=== PATIENT | male | born 1955 | race Caucasian/White ===

== ENCOUNTER 2019-06-01 18:33 | Inpatient (IN) | payer MEDICARE, OTHER ==
[~2019-06-01] VITALS: Ht 190.5 cm; Wt 100.7 kg
[~2019-06-01 18:33] MED LIST: DOXYCYCLINE HY100 M2 ORAL; FLAGYL250 MG ORAL; PEPTO-BISM262 MG/15 ORAL; PROTONIX40 MG ORAL
--- NOTE | 2019-06-01 18:48 | Emergency Room Report ---
History of Present Illness General Chief Complaint: Seizure Source: Patient Present Illness HPI Patient is a 63-year-old male brought in by basic ambulance after a seizure at his facility. Patient had seizure lasting approximately 2 to 3 minutes.Patient not been having any recent fever or illness. No prior history of seizures. Patient denies any current complaints. Denies any extremity pain. Allergies: Coded Allergies: PENICILLINS (Verified Allergy, Unknown, 05/03/18) Patient History Past Medical History: see triage record Reviewed Nursing Documentation: PMH: Agreed; PSxH: Agreed Nursing Documentation-PMH Past Medical History: No History, Except For Hx Cardiac Problems: Yes - PKD Hx Hypertension: Yes Hx Cancer: No Hx Gastrointestinal Problems: No Hx Neurological Problems: Yes Hx Parkinson's Disease: Yes Review of Systems All Other Systems: negative except mentioned in HPI Physical Exam Vital Signs Date Time Temp Pulse Resp B/P (MAP) Pulse Ox O2 Delivery O2 Flow Rate FiO2 06/01/19 18:40 98.4 83 18 129/74 (92) 99 Room Air Sp02 EP Interpretation: reviewed, normal General Appearance: normal inspection, well appearing, no apparent distress, alert, GCS 15 Head: atraumatic ENT: normal ENT inspection, hearing grossly normal, normal voice Neck: normal inspection, full range of motion, supple, no bony tend Respiratory: normal inspection, lungs clear, normal breath sounds, no respiratory distress, no retraction, no wheezing Cardiovascular #1: regular rate, rhythm, no edema Gastrointestinal: normal inspection, normal bowel sounds, non tender, soft, no guarding, no hernia Genitourinary: no CVA tenderness Musculoskeletal: normal inspection, back normal, normal range of motion Neurologic: alert, motor strength/tone normal, fur sewer III-XII nml as tested, oriented x3, responsive, speech normal, normal inspection Psychiatric: normal inspection, judgement/insight normal, mood/affect normal Skin: no rash Medical Decision Making Diagnostic Impression: Primary Impression: Epileptic seizure, generalized ER Course Patient presented for seizure. Differential diagnosis include was not limited to medication withdrawal, hyponatremia, CVA, alcohol withdrawal, substance abuse among others. Because of complexity of patient's case laboratory tests and imaging studies were ordered.Laboratory testing was unremarkable. CT of the head read by radiologist no evidence of acute CVA or intracranial hemorrhage. Dr. Bob Estrada was contacted for inpatient management Labs Test 06/01/19 19:55 06/01/19 20:34 Sodium Level 140 MMOL/L (136-145) Potassium Level 4.5 MMOL/L (3.5-5.1) Chloride Level 103 MMOL/L (98-107) Carbon Dioxide Level 30 MMOL/L (21-32) Anion Gap 7 mmol/L (5-15) Blood Urea Nitrogen 19 mg/dL (7-18) Creatinine 0.9 MG/DL (0.55-1.30) Estimat Glomerular Filtration Rate > 60 mL/min (>60) Glucose Level 95 MG/DL (74-106) Calcium Level 10.0 MG/DL (8.5-10.1) Total Bilirubin 0.4 MG/DL (0.2-1.0) Aspartate Amino Transf (AST/SGOT) 29 U/L (15-37) Alanine Aminotransferase (ALT/SGPT) 30 U/L (12-78) Alkaline Phosphatase 111 U/L (46-116) Troponin I 0.018 ng/mL (0.000-0.056) Total Protein 7.9 G/DL (6.4-8.2) Albumin 4.2 G/DL (3.4-5.0) Globulin 3.7 g/dL Albumin/Globulin Ratio 1.1 (1.0-2.7) Valproic Acid (Depakene) Level < 3 MCG/ML (50-100) White Blood Count 9.8 K/UL (4.8-10.8) Red Blood Count 4.11 M/UL (4.70-6.10) Hemoglobin 13.2 G/DL (14.2-18.0) Hematocrit 37.3 % (42.0-52.0) Mean Corpuscular Volume 91 FL (80-99) Mean Corpuscular Hemoglobin 32.2 PG (27.0-31.0) Mean Corpuscular Hemoglobin Concent 35.5 G/DL (32.0-36.0) Red Cell Distribution Width 11.7 % (11.6-14.8) Platelet Count 196 K/UL (150-450) Mean Platelet Volume 5.2 FL (6.5-10.1) Neutrophils (%) (Auto) 61.6 % (45.0-75.0) Lymphocytes (%) (Auto) 30.4 % (20.0-45.0) Monocytes (%) (Auto) 6.2 % (1.0-10.0) Eosinophils (%) (Auto) 1.2 % (0.0-3.0) Basophils (%) (Auto) 0.6 % (0.0-2.0) Last Vital Signs Date Time Temp Pulse Resp B/P (MAP) Pulse Ox O2 Delivery O2 Flow Rate FiO2 06/01/19 18:40 98.4 83 18 129/74 (92) 99 Room Air Status: improved Disposition: ADMITTED INPATIENT Condition: Stable Jordy Drake MD Jun 01, 2019 18:48
[2019-06-01 19:10] VITALS: BP 129/74
--- NOTE | 2019-06-01 19:12 | Diagnostic Imaging Report ---
Indication: Headache Technique: Contiguous 5 mm thick transaxial imaging of the head obtained in a Siemens Sensation [address] scanner. Soft tissue and bone windows generated. Automatic Exposure Control was utilized. Total Dose length Product (DLP): 1394.[address] Dose Index Volume (CTDIvol): 60 mGy Comparison: none Findings: The size and configuration of the cortical sulci, basal cisterns, and ventricles are within normal limits for age. There is no mass effect, midline shift, or edema identified. There is no evidence of acute hemorrhage or abnormal intra-axial or extra-axial fluid collections. The bones and soft tissues are unremarkable. Impression: No mass effect, edema or acute bleed. [facility] has communicated the preliminary results to the Emergency Department. Their findings are largely concordant with this report. The CT scanner at [facility] is accredited by the [employer] and the scans are performed using dose optimization techniques as appropriate to a performed exam including Automatic Exposure control.
--- NOTE | 2019-06-01 19:13 | NUR ---
ED Nurse Note: Patient was BIBA from [facility] due to unwhitness seizure at 1445 today. Seizure last 255 sec. Patient presented calm, cooperative, AAO x4, VSS at this time.
[2019-06-01 20:27] LABS: ANION GAP 7 mmol/L (5-15); BLOOD UREA NITROGEN 19 mg/dL (7-18); CARBON DIOXIDE 30 MMOL/L (21-32); CHLORIDE 103 MMOL/L (98-107); CREATININE 0.9 MG/DL (0.55-1.30); POTASSIUM 4.5 MMOL/L (3.5-5.1); SODIUM 140 MMOL/L (136-145)
[2019-06-01 20:33] LABS: ALANINE AMINOTRANSFERASE 30 U/L (12-78); ALBUMIN 4.2 G/DL (3.4-5.0); ALBUMIN/GLOBULIN RATIO 1.1 (1.0-2.7); ALKALINE PHOSPHATASE 111 U/L (46-116); ASPARTATE AMINO TRANSFERASE 29 U/L (15-37); BILIRUBIN,TOTAL 0.4 MG/DL (0.2-1.0)
[2019-06-01 20:45] LABS: BASOPHILS % (AUTO) 0.6 % (0.0-2.0); EOSINOPHILS % (AUTO) 1.2 % (0.0-3.0); HEMATOCRIT 37.3 % (42.0-52.0); HEMOGLOBIN 13.2 G/DL (14.2-18.0); LYMPHOCYTES % (AUTO) 30.4 % (20.0-45.0); MEAN CORPUSCULAR VOLUME 91 FL (80-99); MONOCYTES % (AUTO) 6.2 % (1.0-10.0); NEUTROPHILS % (AUTO) 61.6 % (45.0-75.0); PLATELET COUNT 196 K/UL (150-450); RED BLOOD COUNT 4.11 M/UL (4.70-6.10); RED CELL DISTRIBUTION WIDTH 11.7 % (11.6-14.8); WHITE BLOOD COUNT 9.8 K/UL (4.8-10.8)
[2019-06-01] MEDS ORDERED: BENZTROPINE ME0.5 MG PO (22:01)
[2019-06-01] MEDS ORDERED: MYLANTA GAS MIN42 MG PO (22:01)
[2019-06-01] MEDS ORDERED: ZOLOFT25 MG ORAL (22:01)
[2019-06-01] MEDS ORDERED: MILK OF MA400 MG/51 ORAL (22:02)
[2019-06-01 23:00] VITALS: BP 144/76
--- NOTE | 2019-06-01 23:00 | NUR ---
ED Nurse Note: Patient was admited to Tele due to new onset of seizure. Patient was transfered to the unit via gurney, by ACLS protocol, with all belongings. Patient AAO x3, VSS at this time, no skin issues, warm to touch.
--- NOTE | 2019-06-01 23:05 | NUR ---
NURSE NOTES: Received pt from ED via gurney. Pt transferred to 207- without any incident. Pt is A/Ox2. [place] pt to room and unit. monitoring coordinator is in placed; pt is NSR. IV site intact, asymptomatic, and patent. Belongings list checked and signed. Bed is in the lowest position and locked. Call light and bedside table is within reach. Seizure precaution implemented. No signs/symptoms of acute distress noted at this time. Received orders from Dr. Estrada. Will note and carry out.
[2019-06-01 23:10] VITALS: BP 116/73
[2019-06-01] MEDS ORDERED: LORazepam Inj 2mg/ml 1ml IV PRN (23:30)
[2019-06-02] VITALS (14 sets, daily range): BP systolic 104–136; BP diastolic 65–84
[2019-06-02] MEDS ORDERED: Bismuth Subsalicylate 30ml ORAL PRN (07:00)
[2019-06-02] MEDS ORDERED: Bismuth Subsalicylate 30ml ORAL SCH (07:00)
--- NOTE | 2019-06-02 07:22 | NUR ---
HAND-OFF: Report given to DUSTY Baeza. Plan of care endorsed.
--- NOTE | 2019-06-02 07:30 | NUR ---
NURSE NOTES: Received report from DUSTY Wells. Pt is A/Ox2, with periods of confusion and forgetfulness. Pt is currently eating breakfast. Breathing even and unlabored in RA. Pt up ad juana with steady gait. Pt complains of 5/10 headache, will administer PRN tylenol. No acute distress noted. Bed on lowest position, call light within reach. Will continue plan of care.
[2019-06-02] MEDS ORDERED: LORazepam 1mg tab ORAL PRN (08:00)
[2019-06-02] MEDS ORDERED: Sertraline 50mg tab ORAL SCH (09:00)
--- NOTE | 2019-06-02 09:00 | History and Physical Report ---
DATE OF ADMISSION: 06/01/2019 CHIEF COMPLAINT: New-onset seizures. HISTORY OF PRESENT ILLNESS: The patient is a 63-year-old male well known to me. He currently resides at [facility]. He has a history of schizophrenia and schizoaffective disorder. He had a witnessed tonoclonic seizure, was transferred to the emergency room. On evaluation there, the laboratories were relatively unremarkable. Head CT was negative. He currently appears at baseline. He denies any falls or head trauma. He denies any fevers or chills. No headaches. PAST MEDICAL HISTORY: As above. He has a history of BPH, history of colon polyps. CURRENT MEDICATIONS: Reconciled and reviewed. ALLERGIES: Include penicillin. FAMILY HISTORY: Noncontributory. SOCIAL HISTORY: There is no known history of tobacco, ethanol, or drugs. REVIEW OF SYSTEMS: GENERAL: No fever or chills. HEENT: No headaches or visual changes. CARDIOPULMONARY: No chest pain or shortness of breath. GASTROINTESTINAL: No nausea or vomiting. GENITOURINARY: No urgency or frequency. MUSCULOSKELETAL: No joint pain or swelling. NEUROLOGIC: seizures. PHYSICAL EXAMINATION: VITAL SIGNS: Temperature 98 degrees, blood pressure 116/84, pulse 65, and respirations 19. GENERAL: The patient is well developed, in no apparent distress. HEART: Regular rate and rhythm. LUNGS: Lungs are clear. ABDOMEN: Soft, nontender, and nondistended. EXTREMITIES: Without clubbing, cyanosis, or edema. NEUROLOGIC: Cranial nerves II to XII are intact. Motor strength is 5/5 bilaterally. Sensation is intact bilaterally. LABORATORY DATA: Labs were reviewed. CT head is negative. ASSESSMENT: This is a pleasant male admitted with complaints of new-onset seizures. PROBLEM LIST: 1. New-onset seizures. 2. History of schizoaffective disorder and schizophrenia. 3. History of colon polyps. PLAN: 1. Neurology consultation. 2. Check an EEG, MRI of the brain. 3. Continue psych treatment. 4. Psych consultation has been obtained. Bob Estrada M.D. DR: BAO JOB#: [id number] CC:
[2019-06-02] MEDS: Benztropine 1mg tab ORAL SCH ×2 (09:01→17:35)
[2019-06-02] MEDS: Milk of Magnesia 30ml Ud ORAL SCH (09:02)
[2019-06-02] MEDS ORDERED: LORazepam Inj 2mg/ml 1ml IV PRN (12:00)
--- NOTE | 2019-06-02 12:04 | NUR ---
NURSE NOTES: Patient is noted for Brain MRI with no contrast. Patient was given one time dose of Ativan 2 mg PO 49 minutes ago. Patient is noted still anxious. Contacted and informed Dr. Estrada, inquired if okay to give one time dose of Ativan 2 mg IV for Brain MRI procedure. Dr. Estrada acknowledged and ordered Ativan 2 mg IV x one for Brain MRI procedure. Primary nurse made aware. Will continue to monitor patient.
--- NOTE | 2019-06-02 12:24 | Diagnostic Imaging Report ---
Indication: Dyspnea Comparison: None A single view chest radiograph was obtained. Findings: The interstitium of the lung is mildly prominent which is nonspecific. There is no definite infiltrate. The diaphragm is clear. Heart size appears normal. The bones are osteopenic. IMPRESSION: Prominence of the pulmonary interstitial nonspecific in nature. Osteopenia
--- NOTE | 2019-06-02 12:45 | NUR ---
NURSE NOTES: Patient is off tele for MRI.
--- NOTE | 2019-06-02 12:47 | NUR ---
NURSE NOTES: This nurse was called into patient's room for assistance by Maxime Polk. Per Maxime patient found on floor on hands an knees. Asked patient if they fell, patient stated they did not. Asked if patient hit their head, patient states they did not, asked if patient had any joint pain, patient states they do not and rotates his arms and feet. Assisted patient to bed and assessed vital signs. Dr. Estrada at nurse station and made aware of situation, no new orders were given at this time. Will continue to monitor. Nurse operations supervisor chemical cleaning made aware of situation and was assessed at bedside. Will continue to monitor patient. Patient is alert and oriented x 4, with moments of forgetfulness, able to follow commands and make needs known.
--- NOTE | 2019-06-02 12:52 | NUR ---
NURSE NOTES: Placed patient in room 209-2, closer to the nurse station for closer monitoring. Patient placed in yellow socks, patient verbalized understanding of using call light. Will continue to monitor patient.
--- NOTE | 2019-06-02 13:14 | NUR ---
Patient came back from MRI. MRI unsuccessful. Pt was given PO and IV ativan prior. Accd to hearing aid repair technician, the patient was pulling himself out the scanner. Pt was connected back to tele monitor. Vital signs obtained, BP 120/70, HR 70, O2 sat 100% on RA. Made the MD aware. Addendum: 06/02/19 at 1531 by Felisha Obando RN NURSE NOTES: Patient came back from MRI. MRI unsuccessful. Pt was given PO and IV ativan prior. Accd to hearing aid repair technician, the patient was pulling himself out the scanner. Pt was connected back to tele monitor. Vital signs obtained, BP 120/70, HR 70, O2 sat 100% on RA. Made the MD aware.
--- NOTE | 2019-06-02 15:47 | NUR ---
06/02...CONCERNING MRI, PT UNABLE TO KEEP STILL AND KEEP HEAD FLAT. IV AND PO SEDATION WAS GIVEN. DUSTY DAVIES HAS BEEN INFORMED. TONY
--- NOTE | 2019-06-02 16:29 | NUR ---
CASE MANAGEMENT:REVIEW 63 YR OLD MALE BIBA FROM [facility] CC; SEIZURE SI: NEW ONSET SEIZURE 98.4 83 18 129/74 99% ON RA H/H-13.2/37.3 BUN+19 IS: CT HEAD CHEST XRAY : TO TELEMETRY IS: IV ATIVAN X1 PRN ZOLOFT PO QD COGENTIN PO BID PROTONIX PO QD
--- NOTE | 2019-06-02 19:38 | NUR ---
HAND-OFF: Report given to DUSTY Wharton. Pt in stable condition. Endorsed plan of care.
--- NOTE | 2019-06-02 19:54 | NUR ---
NURSE NOTES: Received patient from DUSTY Beaza. Patient awake and ambulating the yeung. Was informed of previous fall during day shift. Will continue to reorient patient. Safety precautions in place. Bed locked and lowest position. Call light within reach. Will continue to monitor.
--- NOTE | 2019-06-02 22:15 | Consultation ---
DATE OF CONSULTATION: 06/02/2019 CONSULTING PHYSICIAN: Jordyn Morelos M.D. HISTORY OF PRESENT ILLNESS: This is a 63-year-old male, well known to this physician from the care home who has been admitted to the hospital for medical stabilization. The patient has a history of schizoaffective disorder. He has been admitted due to new-onset seizure. The patient is able to answer the questions; however, he was dozing off. PAST PSYCHIATRIC HISTORY: Schizoaffective disorder, several psychiatric hospitalizations. PAST MEDICAL HISTORY: As above. ALLERGIES: No known drug allergies. SUBSTANCE ABUSE HISTORY: No known history of illicit drug use or alcohol. MENTAL STATUS EXAMINATION: The patient is alert, oriented x3. Mood is anxious. Affect is constricted, congruent with mood. Thought process is concrete. Thought content, no suicidal or homicidal ideation. ASSESSMENT: Wayzata I Schizoaffective disorder. Wayzata II Deferred. Wayzata III As above. Wayzata IV Low. Wayzata V 50. PLAN: 1. Zoloft 25 mg in the morning. 2. Ativan p.r.n. 3. The patient may benefit from . 4. Continue to follow and readjust the medications. Jordyn Morelos M.D. DR: CATINA JOB#: [id number] CC:
--- NOTE | 2019-06-02 22:17 | NUR ---
NURSE NOTES: Called and left message for Dr. Estrada, regarding pt's aggressiveness and requesting a sitter. Waiting for call back. Will continue to monitor patient.
--- NOTE | 2019-06-03 07:28 | NUR ---
NURSE NOTES: Report received from from Akiko. Pt. sleeping comfortably. No breathing distress noted. Per night RN, didn't get sleep and asked not to be woken up. Bed on lowest position, side rails upx2, brakes engaged, alarm on. Call light left within easy reach. Sitter order is in however no sitter at bedside JAY JAY Rey made aware.
--- NOTE | 2019-06-03 07:51 | NUR ---
HAND-OFF: Report given to DUSTY Oliva. Pt stable.
--- NOTE | 2019-06-03 07:52 | General Progress Note ---
Assessment/Plan Problem List: (1) Schizo-affective schizophrenia, subchronic condition with acute exacerbation ICD Codes: F25.9 - Schizoaffective disorder, unspecified SNOMED: 032979447 (2) Epileptic seizure, generalized ICD Codes: G40.309 - Generalized idiopathic epilepsy and epileptic syndromes, not intractable, without status epilepticus SNOMED: 14064822 Status: stable, unchanged Assessment/Plan: neuro eval refused mri. head ct neg start depakote for possible szs. may help with pt labile mood Subjective ROS Limited/Unobtainable: No Constitutional: Reports: malaise, weakness HEENT: Reports: no symptoms Cardiovascular: Reports: no symptoms Respiratory: Reports: cough Gastrointestinal/Abdominal: Reports: no symptoms Genitourinary: Reports: no symptoms Neurologic/Psychiatric: Reports: anxiety, emotional problems, seizure Endocrine: Reports: no symptoms Hematologic/Lymphatic: Reports: no symptoms Allergies: Coded Allergies: PENICILLINS (Verified Allergy, Unknown, 05/03/18) All Systems: reviewed and negative except above Subjective no events. easily agitated. refused mri. No szs noted. Objective Last 24 Hour Vital Signs Date Time Temp Pulse Resp B/P (MAP) Pulse Ox O2 Delivery O2 Flow Rate FiO2 06/03/19 04:33 84 06/02/19 23:45 89 06/02/19 22:47 108/68 (81) 06/02/19 21:47 107/68 (81) 06/02/19 21:00 Room Air 06/02/19 20:47 97.3 83 18 106/68 (81) 96 06/02/19 19:47 98.2 85 18 104/66 (79) 96 06/02/19 18:47 98.2 99 18 127/65 (85) 97 06/02/19 17:47 98.0 83 18 130/75 (93) 97 06/02/19 16:00 97.8 78 18 136/80 (98) 100 06/02/19 15:38 72 06/02/19 14:47 98.4 75 20 128/76 (93) 99 06/02/19 14:27 98.0 73 20 125/72 (89) 98 06/02/19 13:47 98.5 70 20 120/70 (87) 97 06/02/19 13:27 98.0 72 20 122/75 (91) 98 06/02/19 12:00 98.1 77 20 134/79 (97) 97 06/02/19 12:00 90 06/02/19 08:40 Room Air 06/02/19 08:00 97.6 74 19 130/71 (90) 100 06/02/19 08:00 83 Intake and Output 06/02/19 06/03/19 19:00 07:00 Intake Total 280 ml 140 ml Output Total 1200 ml 1200 ml Balance -920 ml -1060 ml Intake Oral 280 ml 140 ml Output Urine Total 1200 ml 1200 ml # Voids 3 3 # Bowel Movements 1 Height (Feet): 6 Height (Inches): 3.00 Weight (Pounds): 222 General Appearance: WD/WN, alert, confused, agitated Neck: supple Cardiovascular: regular rhythm Respiratory/Chest: chest wall non-tender, lungs clear, normal breath sounds, no respiratory distress Abdomen: normal bowel sounds, non tender, soft, no organomegaly Edema: no edema noted Arm (L), no edema noted Arm (R), no edema noted Leg (L), no edema noted Leg (R), no edema noted Pedal (L), no edema noted Pedal (R), no edema noted Generalized Bob Estrada MD Jun 03, 2019 07:52
--- NOTE | 2019-06-03 08:30 | NUR ---
NURSE NOTES: Pt still sleeping comfortably. RR 17, HR 75 on nurse monitoring. No breathing distress noted.
--- NOTE | 2019-06-03 09:57 | NUR ---
NURSE NOTES: Pt. sleeping comfortably, opened eyes for frequent name calling, however, went back to sleeping. RR 19, HR 80 on radiation monitor. Unable to give medication at this time. Bed on lowest position, side rails upx2, brakes engaged, alarm on. Call light within easy reach.
[2019-06-03] MEDS: Depakote 500mg tab ORAL SCH ×2 (10:55→20:25)
[2019-06-03] MEDS: Milk of Magnesia 30ml Ud ORAL SCH (10:55)
[2019-06-03] MEDS: Sertraline 50mg tab ORAL SCH (10:56)
[2019-06-03] MEDS: Benztropine 1mg tab ORAL SCH ×2 (10:57→17:29)
[2019-06-03 11:00] VITALS: BP 119/79
[2019-06-03 16:00] VITALS: BP 107/59
--- NOTE | 2019-06-03 19:20 | NUR ---
HAND-OFF: Report given to DUSTY Wharton. Pt. in stable condition. Plan of care endorsed. Sitter at bedside.
--- NOTE | 2019-06-03 19:50 | NUR ---
NURSE NOTES: Received pt from DUSTY Oliva. Pt awake, alert, and roaming the hallway. Bed in lowest position. Sitter in place. Call light within reach. Will continue to monitor
[2019-06-04] VITALS: BP 118/71
--- NOTE | 2019-06-04 07:25 | NUR ---
HAND-OFF: Report given to DUSTY Landin. Pt stable.
[2019-06-04 08:00] VITALS: BP 106/64
--- NOTE | 2019-06-04 08:00 | NUR ---
NURSE NOTES: Recvd nurse. Pt is sleeping in bed, Pt is on RA with no sign of distress.Pt is showing SR with 1st AVB on wheel fitter. Pt has no IV site, assembler chassis nurse notified dr. Gutierrez at bedside. Bed in lowest position, call light within reach, will continue with plan of care
[2019-06-04] MEDS: Benztropine 1mg tab ORAL SCH ×2 (09:57→17:26)
[2019-06-04] MEDS: Milk of Magnesia 30ml Ud ORAL SCH (09:57)
[2019-06-04] MEDS: Depakote 500mg tab ORAL SCH ×2 (09:58→20:20)
[2019-06-04] MEDS: Sertraline 50mg tab ORAL SCH (09:58)
[2019-06-04 12:00] VITALS: BP 112/70
--- NOTE | 2019-06-04 13:45 | General Progress Note ---
Assessment/Plan Problem List: (1) Schizo-affective schizophrenia, subchronic condition with acute exacerbation ICD Codes: F25.9 - Schizoaffective disorder, unspecified SNOMED: 333253686 (2) Epileptic seizure, generalized ICD Codes: G40.309 - Generalized idiopathic epilepsy and epileptic syndromes, not intractable, without status epilepticus SNOMED: 72753449 Status: stable, unchanged Assessment/Plan: neuro eval pending- d/w refused mri. head ct neg start depakote for possible szs. may help with pt labile mood reorder EEG Subjective ROS Limited/Unobtainable: No Constitutional: Reports: malaise, weakness HEENT: Reports: no symptoms Cardiovascular: Reports: no symptoms Respiratory: Reports: cough Gastrointestinal/Abdominal: Reports: no symptoms Genitourinary: Reports: no symptoms Neurologic/Psychiatric: Reports: anxiety, emotional problems Endocrine: Reports: no symptoms Hematologic/Lymphatic: Reports: no symptoms Allergies: Coded Allergies: PENICILLINS (Verified Allergy, Unknown, 05/03/18) All Systems: reviewed and negative except above Subjective no events. easily agitated. refused mri. No szs noted. still no eeg Objective Last 24 Hour Vital Signs Date Time Temp Pulse Resp B/P (MAP) Pulse Ox O2 Delivery O2 Flow Rate FiO2 06/04/19 12:00 96.8 79 18 112/70 (84) 97 06/04/19 12:00 66 06/04/19 09:00 Room Air 06/04/19 08:00 69 06/04/19 08:00 98.1 73 18 106/64 (78) 98 06/04/19 04:00 73 06/04/19 00:00 98.6 67 18 118/71 (87) 98 06/04/19 00:00 69 06/03/19 21:00 Room Air 06/03/19 20:00 95 06/03/19 16:00 75 06/03/19 16:00 97.5 75 17 107/59 (75) 97 Intake and Output 06/03/19 06/04/19 19:00 07:00 Intake Total 480 ml 140 ml Balance 480 ml 140 ml Intake Oral 480 ml 140 ml # Voids 2 5 Height (Feet): 6 Height (Inches): 3.00 Weight (Pounds): 222 Objective General Appearance: WD/WN, alert, confused, agitated Neck: supple Cardiovascular: regular rhythm Respiratory/Chest: chest wall non-tender, lungs clear, normal breath sounds, no respiratory distress Abdomen: normal bowel sounds, non tender, soft, no organomegaly Edema: no edema noted Arm (L), no edema noted Arm (R), no edema noted Leg (L), no edema noted Leg (R), no edema noted Pedal (L), no edema noted Pedal (R), no edema noted Generalized Bob Estrada MD Jun 04, 2019 13:45
[2019-06-04 16:00] VITALS: BP 126/77
--- NOTE | 2019-06-04 17:45 | Consultation ---
DATE OF CONSULTATION: 06/04/2019 CONSULTING PHYSICIAN: Bandar Ceballos M.D. CHIEF COMPLAINT: This is the [facility] admission for this 63-year-old right-handed white male with either schizophrenia or schizoaffective disorder and previous polyps who was admitted after having a witnessed tonic-clonic seizure. The patient was admitted on 05/03/2018 for abdominal pain, history of colon polyps, and lower extremity cellulitis. He also had prior history of rectal bleeding, got IV antibiotics, and was discharged stable and went to a [facility] facility. The patient has a questionable history of "Parkinson disease." The patient cannot give a history when he was brought to this emergency room after his tonic-clonic seizure. The patient had a CT scan of the brain, which revealed some atrophy, otherwise pretty much negative. Chest x-ray was done, which revealed prominence of pulmonary interstitial, nonspecific in nature. His microbiology reveals negative cultures. Laboratory exam revealed that he was anemic with an elevated MCH. His platelet counts were normal. His white count was normal. He had a valproic acid level done on 06/01/2019, which was less than 3. The patient does not appear to be on valproic acid when he was admitted. He was on Cogentin 0.5 mg, doxycycline 100 mg, magnesium hydroxide, Flagyl 250 mg, pantoprazole, sertraline, HCl 25 mg, simethicone. The patient's PT and PTT were normal. Urinalysis was not done. EKG was not done although he appears to have a rhythm strip. EKG looks pretty much normal. The patient was started on Depakote 500 mg q.12 hours on 06/03/2019. He was also started on IV lorazepam 1 mg, but has not had any seizures. I was asked to see the patient in neurologic evaluation. The patient denies any headaches. No history of head injury. He denies any history of strokes. There is no muscle weakness or apparent gait disorder. He has schizophrenia, bipolar disorder, major depressive disorder, Parkinson's disease. There is no family history of neurologic disease available. PAST MEDICAL HISTORY/PAST MEDICAL ILLNESSES: 1. History of BPH. 2. Colonic polyp. See above with rectal bleeding. 3. Cellulitis. See above. ALLERGIES: He is allergic to penicillin. HABITS: He denies any alcohol, however, he is a smoker, but cannot tell me how much he smokes per day. He denies any illegal drug use, although he has smoked marijuana in the past. SOCIAL HISTORY: He is unmarried. He has no children. HISTORY: He was in the [employer] for couple years. No injuries. FAMILY HISTORY: There is a family history of colon cancer. REVIEW OF SYSTEMS: Appetite is fair. Weight is unknown. PHYSICAL EXAMINATION: GENERAL: He is a well-developed, well-nourished, disheveled appearing man, in no acute distress. VITAL SIGNS: Blood pressure is 106/64, pulse is 73 and regular, respiration rate is 18, temperature is 98.1 degrees. HEENT: Examination of his head reveals poor dentition. NECK: Supple. There is no tenderness. There is a pulsating mass in the right anterior neck area. Possible carotid arteries. Carotids are +1. No bruits appreciated. LUNGS: Clear to auscultation. CARDIOVASCULAR: PMI was not felt unsafe. JVP was not well visualized. The patient had a normal S1. S2 is physiologically split. There was no S3, S4, murmurs, or rubs appreciated. ABDOMEN: Nontender. Bowel sounds were intact. There are no masses or organomegaly appreciated. EXTREMITIES: There is no peripheral edema. Peripheral pulses were actually +2. NEUROLOGIC EXAMINATION: MENTAL STATUS: The patient is alert and awake. Tends to speak in a very loud voice with a very flat affect. He keeps asking the same questions over and over again. His judgment is impaired. Affect is flat. Memory, he knows his birthday. Immediate recall 3/3 objects. Recent recall 0/3 objects at 5 minutes. Intellect could tested. Orientation - time and date he thought it was 2017. Place, he thought he was at [facility]. Person, he was oriented to person. There are no obvious hallucinations or delusions at this point. Language function, spoken speech was fluent without paraphasias. Simple repetition was intact. There was no right and left confusion. He could spell world forwards, but only could spell it backwards "DL." His voice tended to be loud. CRANIAL NERVE EXAMINATION: CRANIAL NERVE II: Visual horton intact to confrontation. Fundi were not well visualized. CRANIAL NERVE III, IV, AND : Extraocular motility was full. Pupils are 4.5 to 5 mm, round, and light reactive. CRANIAL NERVE V: Facial and corneal sensation was appeared to be intact to fine touch. CRANIAL NERVE VII: He had tick, light movements of his left cheek. Otherwise, facial strength appeared to be 5/5. CRANIAL NERVE VIII: Auditory acuity is intact to whisper. CRANIAL NERVES IX AND X: Gag was intact. CRANIAL NERVE XI: Sternocleidomastoid strength 5/5. CRANIAL NERVE XII: Tongue protrudes in the midline without fasciculations or atrophy. MUSCLE EXAMINATION: Muscle bulk and tone are intact. Strength is 5/5 proximally and distally. There is no obvious tremor noted. REFLEXES: +1.5 to 2 in the upper extremities, +2 at the knees, 0 at the ankles with indefinite toe sign on testing for Babinski response. COORDINATION: Ykxjrm-rtrplr-obcc, rapid alternating movements are basically intact. Udko-ly-yqdx testing is normal. GAIT AND STATION: Not tested. SENSORY EXAMINATION: Proprioception, pinprick, and fine touch were intact. IMPRESSION: The patient had one seizure, the cause of which is unclear. There is no obvious brain lesion on the CT scan of his brain. His electrolytes were normal. There is no significant renal failure. He did not have a magnesium level. The patient is on an antidepressant, which could lower seizure threshold. I doubt this is the exact cause of the seizure. Most seizures this age are caused either by strokes or tumors. It will be helpful if we could obtain further history. Depakote. I would probably continue him on the medication, although he has not had other attacks. An EEG was ordered. The patient also ticks on the left side of his face. I do not think these are simple partial seizures. He also has a pulsation in his anterior neck, the cause of which is unclear. He has absent ankle reflexes, the cause of which is unclear. As far as his altered mental status is concerned, his attention span is normal. Part of this could be due to his Cogentin or the Zoloft although at a low dose. His schizophrenia could also interfere with his mental status without causing problems with attention and/or lethargy. He is also anemic. I will probably get a B12, methylmalonic acid level on him. We can obtain a serum ammonia although he does not have asterixis and the BUN was slightly elevated. We can follow that along. PLAN: 1. B12, methylmalonic acid level. 2. Sedimentation rate. 3. Continue Depakote. 4. I will speak to you about this case. Thank you for this interesting case. Bandar Ceballos MD DR: BONNIE JOB#: [id number] CC: KOBE
--- NOTE | 2019-06-04 19:06 | NUR ---
HAND-OFF: Report given to Nathaniel Topete RN .
--- NOTE | 2019-06-04 19:10 | NUR ---
Received report from nurse Matilde MONTANO. Patient awake, quietly resting on bed, but verbally responsive to simple questions asked. Requesting a snack , sandwich in particular. Matt Joshua is at bed side and needs attended to. Bed at its lowest and locked. Seizure precautions observed.
--- NOTE | 2019-06-04 19:11 | NUR ---
NURSE NOTES: Received report from nurse Matilde MONTANO. Patient awake, quietly resting on bed, but verbally responsive to simple questions asked. Requesting a snack , sandwich in particular. SitCampuzano is at bed side and needs attended to. Bed at its lowest and locked. Seizure precautions observed.
[2019-06-04 20:02] VITALS: BP 125/68
[2019-06-04 23:44] VITALS: BP 118/80
[2019-06-05 04:21] VITALS: BP 121/74
--- NOTE | 2019-06-05 07:20 | NUR ---
NURSE NOTES: Handoff received from DUSTY White. Patient received awake and alert resting in bed, no acute signs of distress noted, patient IV is clean dry and intact, saline locked. bed in the low and locked position with call light within reach, will continue to monitor patient.
--- NOTE | 2019-06-05 07:20 | NUR ---
NURSE NOTES: handoff received from DUSTY White. Patient has sitter at bedside for previous fall, patient observed sleeping in bed, with the cover over his face, no acute signs of distress noted, breathing is equal and unlabored on room air. Bed is in the low and locked position with call light at bedside, will continue to monitor patient.
--- NOTE | 2019-06-05 07:50 | NUR ---
HAND-OFF: Report given to nurse Miranda. No seizures during the shift. sitter at bedside.
[2019-06-05 08:00] VITALS: BP 114/61
--- NOTE | 2019-06-05 08:34 | General Progress Note ---
Assessment/Plan Problem List: (1) Schizo-affective schizophrenia, subchronic condition with acute exacerbation ICD Codes: F25.9 - Schizoaffective disorder, unspecified SNOMED: 500888918 (2) Epileptic seizure, generalized ICD Codes: G40.309 - Generalized idiopathic epilepsy and epileptic syndromes, not intractable, without status epilepticus SNOMED: 99531645 Status: stable, unchanged Assessment/Plan: neuro eval appreciated refused mri. head ct neg depakote rx reorder EEG follow up labs psych rx Subjective ROS Limited/Unobtainable: No Constitutional: Reports: malaise, weakness HEENT: Reports: no symptoms Cardiovascular: Reports: no symptoms Respiratory: Reports: no symptoms Gastrointestinal/Abdominal: Reports: no symptoms Genitourinary: Reports: no symptoms Neurologic/Psychiatric: Reports: anxiety, depressed, emotional problems, seizure Endocrine: Reports: no symptoms Hematologic/Lymphatic: Reports: no symptoms Allergies: Coded Allergies: PENICILLINS (Verified Allergy, Unknown, 05/03/18) All Systems: reviewed and negative except above Subjective no events. easily agitated. refused mri. No szs noted. still no eeg. neuro input appreciated. Objective Last 24 Hour Vital Signs Date Time Temp Pulse Resp B/P (MAP) Pulse Ox O2 Delivery O2 Flow Rate FiO2 06/05/19 04:21 98.0 66 18 121/74 (90) 97 06/05/19 04:00 66 06/05/19 00:07 63 06/04/19 23:44 97.7 71 18 118/80 (93) 97 06/04/19 22:00 97.4 06/04/19 21:00 Room Air 06/04/19 20:02 97.4 69 18 125/68 (87) 95 06/04/19 20:00 63 06/04/19 16:00 90 06/04/19 16:00 97.5 71 20 126/77 (93) 98 06/04/19 12:00 96.8 79 18 112/70 (84) 97 06/04/19 12:00 66 06/04/19 09:00 Room Air Intake and Output 06/04/19 06/05/19 19:00 07:00 Intake Total 920 ml Balance 920 ml Intake Oral 920 ml # Voids 2 3 Height (Feet): 6 Height (Inches): 3.00 Weight (Pounds): 222 Objective General Appearance: WD/WN, alert, confused, agitated Neck: supple Cardiovascular: regular rhythm Respiratory/Chest: chest wall non-tender, lungs clear, normal breath sounds, no respiratory distress Abdomen: normal bowel sounds, non tender, soft, no organomegaly Edema: no edema noted Arm (L), no edema noted Arm (R), no edema noted Leg (L), no edema noted Leg (R), no edema noted Pedal (L), no edema noted Pedal (R), no edema noted Generalized Bob Estrada MD Jun 05, 2019 08:34
[2019-06-05] MEDS: Sertraline 50mg tab ORAL SCH (09:26)
[2019-06-05] MEDS: Depakote 500mg tab ORAL SCH ×2 (09:27→20:39)
[2019-06-05] MEDS: Milk of Magnesia 30ml Ud ORAL SCH (09:27)
[2019-06-05] MEDS: Benztropine 1mg tab ORAL SCH ×2 (09:27→18:39)
--- NOTE | 2019-06-05 10:25 | NUR ---
CASE MANAGEMENT:REVIEW 06/05/19 SI: NEW ONSET SEIZURE SCHIZOPHRENIA 98.4 68 20 114/61 97% ON RA IS: DEPAKOTE PO Q12 ZOLOFT PO QD COGENTIN PO BID PROTONIX PO QD IV ATIVAN Q2HRS PRN : TELEMETRY STATUS DCP: FROM [facility]
[2019-06-05 12:00] VITALS: BP 118/65
[2019-06-05 15:58] VITALS: BP 118/73
--- NOTE | 2019-06-05 19:05 | NUR ---
Received report from nurse Ruben RN. Patient is awake, and oriented to his name, verbally responsive, forgetful at times but denies c/o discomfort at this time. Sitter at bedside, fall precautions observed. V/S stable. Bed at its lowest and locked.
--- NOTE | 2019-06-05 19:06 | NUR ---
HAND-OFF: Report given to DUSTY White.
[2019-06-05 19:55] VITALS: BP 128/78
--- NOTE | 2019-06-05 23:30 | Electroencephalogram ---
DATE OF PROCEDURE: 06/04/2019 REQUESTING PHYSICIAN: Bob Estrada M.D. READING PHYSICIAN: Oscar Guerrier M.D. PROCEDURE PERFORMED: Electroencephalogram. HISTORY: This EEG was performed on a 63-year-old gentleman with a history of schizophrenia, Parkinson disease, and hypertension, who was noted to have a generalized tonic-clonic seizure. The purpose of this EEG was to evaluate the patient for the degree and type of cerebral dysfunction and to exclude ongoing ictal or interictal phenomena. TECHNICAL NOTE: This EEG was performed on a [employer] with electrodes placed on the scalp according to the International 10-20 system. A single bipolar montage could only be used because the patient was not very cooperative. OBSERVATIONS: In the best awake state, the background activity consisted of 8.5-9 Hz posteriorly predominant well-developed alpha waveforms, which attenuated on eye opening. Large parts of the EEG were marred by EMG, movement, and electrode, artifact. No definite focal abnormalities or epileptiform discharges were seen. IMPRESSION: Normal awake EEG. COMMENT: A normal EEG does not rule out a seizure disorder. Oscar Guerrier M.D., M.S.P.H. Clinical Neurophysiologist DR: IRIS JOB#: [id number] MTDD
[2019-06-05 23:40] VITALS: BP 135/71
[2019-06-06 04:19] VITALS: BP 130/66
--- NOTE | 2019-06-06 07:10 | NUR ---
NURSE NOTES: Handoff received from DUSTY White. Patient observed sleeping in bed, patient has a sitter Isrrael. No acute signs of distress noted. IV site is clean dry and intact, saline locked. bed in the low and locked position with call light within reach, will continue to monitor patient.
--- NOTE | 2019-06-06 07:58 | NUR ---
HAND-OFF: Report given to nurse Ruben MONTANO for follow up of care.Stable. Sitter at bedside..
[2019-06-06 08:00] VITALS: BP 105/65
[2019-06-06] MEDS: Benztropine 1mg tab ORAL SCH (09:32)
[2019-06-06] MEDS: Milk of Magnesia 30ml Ud ORAL SCH (09:33)
[2019-06-06] MEDS: Sertraline 50mg tab ORAL SCH (09:33)
[2019-06-06] MEDS: Depakote 500mg tab ORAL SCH (09:33)
[2019-06-06 12:00] VITALS: BP 124/58
--- NOTE | 2019-06-06 14:07 | NUR ---
DISCHARGE PLANNING DISCHARGE DISCUSSED WITH DR ALCANTARA [facility]INIC[facility] FAXED TO [facility] T: [phone] WAITING FOR ASSIGNED BED NUMBER
--- NOTE | 2019-06-06 14:14 | NUR ---
HAND-OFF: Report given to Ilsa MONTANO.
--- NOTE | 2019-06-06 14:14 | NUR ---
NURSE NOTES: I received report from DUSTY Miranda; patient transferred from Tele 209-2 to [facility] [place] 416-2; patient awake, forgetful; patient very aggressive and asking for pants; on room air, no sing of distress and shortness of breath; no sing of chest pain; patient's belonging checked and signed by transferring and receiving nurse's; patient's underwear and patient's shirt missing under patient's belongings; MD Morelos DC'ed the sitter; IV Left For-Arm 22G flushes well; bed at lowest level, breaks engaged, side rails up x2; call light within reach; will keep monitoring.
[2019-06-06] MEDS ORDERED: LORazepam 1mg tab ORAL PRN ×2 (14:15→14:30)
--- NOTE | 2019-06-06 14:23 | NUR ---
DISCHARGE PLANNING DISCHARGE DISCUSSED WITH DR ALCANTARA DISCHARGE ORDER ENTERED PATIENT WILL RETURN TO [facility] ROOM 416A SKILLED T: [phone] FOR NURSE TO NURSE REPORT [facility] HAS BEEN ARRANGED FOR [address] REGENERATION OPERATOR
[2019-06-06] MEDS ORDERED: DiphenhydrAMINE 50mg/ml Inj IM SCH (14:30)
[2019-06-06] MEDS ORDERED: LORazepam Inj 2mg/ml 1ml IM SCH (14:30)
[2019-06-06] MEDS ORDERED: Haloperidol 5mg/ml Inj IM SCH (14:33)
[2019-06-06 16:00] VITALS: BP 114/66
[2019-06-06] MEDS ORDERED: Bismuth Subsalicylate 30ml ORAL PRN (16:00)
[2019-06-06] MEDS ORDERED: Benztropine 1mg tab ORAL SCH (18:00)
--- NOTE | 2019-06-06 19:10 | NUR ---
HAND-OFF: Report given to DUSTY Perez.
--- NOTE | 2019-06-06 19:25 | NUR ---
NURSE NOTES: Patient discharged back to [facility]. No IV access, ID band removed. All belongings sent with patient. Remained in stable condition. Accompanied by 2 national dedicated truck driver via [place].
--- NOTE | 2019-06-06 19:30 | Progress Note ---
DATE: 06/06/2019 SUBJECTIVE: The patient is easily agitated, aggressive. Continues to threatening to the staff. Poor insight. His response time is lagging. He is more alert today, less confused. MENTAL STATUS EXAMINATION: The patient is alert, oriented times self, place, and situation. Mood is anxious. Affect is constricted, congruent with mood. Thought process is concrete. Thought content, no suicidal or homicidal ideation. Cognition is impaired. Insight and judgment is impaired. ASSESSMENT: Stable. PLAN: 1. We will discontinue the Zoloft. 2. The patient will be discharged. 3. The patient received a cocktail. 4. Continue to follow and readjust the medications. Jordyn Morelos M.D. DR: TIM JOB#: [id number] CC:
[2019-06-07] MEDS ORDERED: Milk of Magnesia 30ml Ud ORAL SCH (09:00)
--- NOTE | 2019-06-07 10:45 | Discharge Summary ---
DATE OF ADMISSION: 06/01/2019 DATE OF DISCHARGE: 06/06/2019 ADMISSION DIAGNOSES: 1. Seizures. 2. History of colon polyps. 3. Encephalopathy. 4. Schizophrenia. 5. Hypertension. 6. Chronic obstructive pulmonary disease. DISCHARGE DIAGNOSES: 1. Seizures. 2. History of colon polyps. 3. Encephalopathy. 4. Schizophrenia. 5. Hypertension. 6. Chronic obstructive pulmonary disease. HOSPITAL COURSE: The patient was admitted with complaints of seizures. He had a CAT scan of the brain that was unremarkable. He refused an MRI. He had an EEG that showed no evidence of seizures. He remains Depakote. Plan of care was discussed with the patient's brother. He was and will be monitored there closely. DISCHARGE MEDICATIONS: Please see discharge medication list for discharge medications. DIET: Regular diet. ACTIVITIES: Ad-juana. Bob Estrada M.D. DR: AYO JOB#: [id number] CC:
== END 2019-06-06 19:25 | DRG 101 ==
LOC: EDBD 18:33 → EDUNIT# 18:33 → EMR 18:50 → 2E 20:27 → EDBEDREQ 20:55 → 2E 23:14 → 4E 06-06 14:15
DX: G40.909 Epilepsy, unspecified, not intractable, without status epilepticus (principal); F25.9 Schizoaffective disorder, unspecified; Z88.0 Allergy status to penicillin; N40.0 Benign prostatic hyperplasia without lower urinary tract symptoms; Z86.010 Personal history of colon polyps; J44.9 Chronic obstructive pulmonary disease, unspecified
CPT/HCPCS: 36415; 70450; 71045; 80053; 80164; 84484; 85025; 87081; 93005; 95819; 99285